=== PATIENT | male | born 1940 | race Caucasian/White ===

== ENCOUNTER 2019-08-22 07:59 | Inpatient (IN) | payer MEDICARE, BC, OTHER ==
[~2019-08-22] VITALS: Ht 152.4 cm; Wt 76.2 kg
[~2019-08-22 07:59] MED LIST: ASPIRIN EC81 M1; OMEPRAZOLE40 MG PO; ZOCOR 20 MG TAB20 M1
[2019-08-22 08:07] VITALS: BP 158/65
[2019-08-22] MEDS ORDERED: NORVASC 2.5 MG2.5 M1 PO (08:19)
[2019-08-22 08:31] LABS: ABSOLUTE BASOPHILS 0.1 thou/uL (0.0-0.2); ABSOLUTE EOSINOPHILS 0.3 thou/uL (0.0-0.7); ABSOLUTE LYMPHOCYTES 2.2 thou/uL (0.8-5.3); ABSOLUTE MONOCYTES 0.4 thou/uL (0.0-1.2); ABSOLUTE NEUTROPHILS 2.8 thou/uL (1.6-8.1); EOSINOPHILS 4.6 %; HEMATOCRIT 43.6 % (42.0-52.0); HEMOGLOBIN 15.5 gm/dL (14.0-18.0); LYMPHOCYTES 38.4 %; MCH 33.6 pg (26.0-34.0); MCHC 35.5 g/dL (28.0-37.0); MCV 94.8 fL (80.0-100.0); MONOCYTES 6.5 %; MPV 7.1 fl. (7.2-11.1); NUCLEATED RBCS 0 /100WBC; PLATELET COUNT* 230 thou/uL (150-400); POLYS 49.5 %; RDW-CV 13.6 % (10.5-14.5); WBC 5.7 thou/uL (4.0-11.0)
[2019-08-22 08:42] LABS: CALCIUM 9.6 mg/dL (8.5-10.1); CREATININE 1.6 mg/dL (0.6-1.3); POTASSIUM 3.9 mmol/L (3.5-5.1)
[2019-08-22 08:56] LABS: ALBUMIN 3.7 g/dL (3.4-5.0); CK-MB MASS 1.7 ng/mL (<0.5-3.6); MAGNESIUM 1.9 mg/dL (1.8-2.4); TOTAL BILIRUBIN 0.4 mg/dL (<0.1-1.0); TOTAL PROTEIN 7.6 g/dL (6.4-8.2)
[2019-08-22 08:59] LABS: APTT 26.3 Seconds (25.0-31.3); INR 1.1
[2019-08-22 10:36] VITALS: BP 121/67
[2019-08-22 14:41] VITALS: BP 121/67
--- NOTE | 2019-08-22 15:01 | NUR ---
PT DISCHARGED TO HOME WITH SONS AND NURSING STAFF AT 1502. IV OUT. NO PAPER SCRIPTS. DISCHARGE PAPERWORK GIVEN. OP STRESS TEST SENT TO BE SCHEDULED. PT STABLE UPON DISCHARGE. ECHO COMPLETE. DC BY CARDIO. PT STABLE UPON DISCHARGE
--- NOTE | 2019-08-22 17:15 | 2DMMODE ---
[place] [address] 2 D/M-MODE ECHOCARDIOGRAM Name: IGOR CADET Room: [address] IN .[place].#: [id number] Admission: 08/22/19 Attend Phys: Anna Cameron, Discharge: 08/22/19 Date of : 42 Date of Service: 08/22/19 1715 Report #: [id number] THIS REPORT FOR: //name// APPROVED REPORT Study performed: 08/22/2019 13:42:32 EXAM: Comprehensive 2D, Doppler, and color-flow Echocardiogram Patient Location: Bedside BSA: 0.74 HR: 50 bpm BP: 121/67 mmHg Other Information Study Quality: Fair Indications Chest Pain 2D Dimensions IVSd: 10.47 (7-11mm) LVOT Diam: 20.75 (18-24mm) LVDd: 43.34 mm PWd: 9.57 (7-11mm) Ascending Ao: 29.29 (22-36mm) LVDs: 30.21 (25-40mm) Aortic Root: 30.76 mm Volumes Left Atrial Volume (Systole) LA ESV Index: 54.60 mL/m2 Aortic Valve AoV Peak Clark.: 1.40 m/s AO Peak Gr.: 7.86 mmHg LVOT Max P.97 mmHg AO Mean Gr.: 4.51 mmHg LVOT Mean P.60 mmHg LVOT Max V: 1.11 m/s AO V2 VTI: 33.61 cm LVOT Mean V: 0.75 m/s JENIFFER (VTI): 2.58 cm2 LVOT V1 VTI: 25.62 cm Mitral Valve E/A Ratio: 0.74 MV Decel. Time: 256.92 ms MV E Max Clark.: 0.67 m/s MV PHT: 74.51 ms MVA (PHT): 2.95 [place]2 [place] [address] 2 D/M-MODE ECHOCARDIOGRAM Name: IGOR CADET Room: [address] IN .[place].#: [id number] Admission: 08/22/19 Attend Phys: Anna Cameron, Discharge: 08/22/19 Date of : 42 Date of Service: 08/22/19 1715 Report #: [id number] TDI E/Lateral E': 7.44 E/Medial E': 7.44 Medial E' Clark.: 0.09 m/s Lateral E' Clark.: 0.09 m/s Pulmonary Valve PV Peak Clark.: 0.89 m/s PV Peak Gr.: 3.17 mmHg Tricuspid Valve RAP Estimate: 5.00 mmHg TR Peak Gr.: 22.03 mmHg RVSP: 27.03 mmHg PA Pressure: 27.03 mmHg Left Ventricle The left ventricle is normal size. There is normal LV segmental wall motion. There is normal left ventricular wall thickness. Left ventricular systolic function is normal. LVEF is 55-60%. Grade I - abnormal relaxation pattern. Right Ventricle Right ventricle is borderline dilated. The right ventricular systolic function is normal. Atria Left atrium is mildly dilated. The right atrium size is normal. Aortic Valve The Aortic valve is mildly sclerotic. Trace aortic regurgitation. There is no aortic valvular stenosis. Mitral Valve The mitral valve is normal in structure. Trace mitral regurgitation. No evidence of mitral valve stenosis. Tricuspid Valve The tricuspid valve is normal in structure. Trace tricuspid regurgitation. Pulmonic Valve The pulmonary valve is normal in structure. There is no pulmonic valvular regurgitation. Great Vessels The aortic root is normal in size. IVC [place] [address] 2 D/M-MODE ECHOCARDIOGRAM Name: PATTIEIGOR CAGLE Mark Room: [address]#: [id number] Admission: 08/22/19 Attend Phys: Anna Cameron, Discharge: 08/22/19 Date of : 42 Date of Service: 08/22/19 1715 Report #: [id number] collapses >50% with inspiration. Pericardium There is no pericardial effusion. <Conclusion> The left ventricle is normal size. There is normal left ventricular wall thickness. Left ventricular systolic function is normal. LVEF is 55-60%. Grade I - abnormal relaxation pattern. Left atrium is mildly dilated. Trace aortic regurgitation. Trace mitral regurgitation. Trace tricuspid regurgitation. <ELECTRONICALLY SIGNED> By: Greyson Bunn MD, FACC 08/22/191714 14 14 Greyson Bunn MD, FACC /INF
--- NOTE | 2019-08-23 08:42 | EKG ---
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1940 Requested By: Darron aCstillo Order Number: [id number] MD: Greyson Bunn Measurements Intervals [place] Rate: 70 P: 68 ID: [id number] QRS: -55 QRSD: 95 T: 73 QT: 409 QTc: 442 Interpretive Statements Sinus rhythm Left anterior fascicular block Abnormal R-wave progression, late transition Compared to ECG 09/21/2013 05:35:30 Left anterior fascicular block now present Electronically Signed On 08-23-2019 8:41:57 CDT by Greyson Bunn [email or web address] <ELECTRONICALLY SIGNED> By: Greyson Bunn MD, FACC 1940 0 0 Greyson Bunn MD, FACC /EPI
== END 2019-08-22 15:02 | disposition home or self-care (01) | DRG 313 ==
LOC: M.ERS 07:59 → M.TBA-ER 09:29 → M.2W 10:48
PROVIDERS: Family Medicine; ADMIT Internal Medicine
DX: R07.89 Other chest pain (principal); E78.5 Hyperlipidemia, unspecified; K21.9 Gastro-esophageal reflux disease without esophagitis; I12.9 Hypertensive chronic kidney disease with stage 1 through stage 4 chronic kidney disease, or unspecified chronic kidney disease; N18.9 Chronic kidney disease, unspecified; Z79.899 Other long term (current) drug therapy; Z82.49 Family history of ischemic heart disease and other diseases of the circulatory system; Z79.82 Long term (current) use of aspirin

== ENCOUNTER → 2019-09-23 | Outpatient (CLI) | payer MEDICARE, BC, OTHER ==
[~2019-09-23] MED LIST changes: +NORVASC 2.5 MG2.5 M1 PO
--- NOTE | 2019-09-23 16:40 | CARDNUC ---
[place] [address] CARDIAC NUCLEAR IMAGING REPORT Name: IGOR CADET Room: [facility]#: [id number] Admission: 09/23/19 Attend Phys: Elaine Garrison Discharge: Date of : 42 Date of Service: 09/23/19 1639 Report #: [id number] THIS REPORT FOR: //name// APPROVED REPORT Study performed: 09/23/2019 15:18:20 Exam: Nuclear Stress Test Indication: Chest pain Patient Location: Out-Patient Stress Tech: Annabelle Her Stress Nurse: Soumya Flores RN Ht: 5 ft 9 in Wt: 168 lbs BSA: 1.92 m2 BMI: 24.80 Medical History Medical History: HTN, Hyperlipidemia Medications: amlosipine, asa, simvastatin Allergies: No known drug allergies Cardiac Risk Factors: Age, HTN, Hyperlipidemia, Past Smoker Exercise History: Physically active Stress Test Details Stress Test: Pharmacologic stress testing performed using 0.4 mg of regadenoson per 5 mL given IV over 10 seconds. Reason for pharmacologic stress test: physical limitation. HR Resting HR: 64 bpm Max Heart Rate (APMHR): 142 bpm Max HR Achieved: 81 bpm Target HR (85% APMHR): 120 bpm % of APMHR: 57 Recovery HR: 72 bpm BP Resting BP: 151/76 mmHg Max BP: 166/81 mmHg ECG Resting ECG: Sinus Rhythm Stress ECG: Sinus Rhythm ST Change: None Arrhythmia: None Recovery ECG: Sinus Rhythm Recovery ST Change: [place] [address] CARDIAC NUCLEAR IMAGING REPORT Name: IGOR CADET Room: [facility]#: [id number] Admission: 09/23/19 Attend Phys: Elaine Garrison Discharge: Date of : 42 Date of Service: 09/23/19 1639 Report #: [id number] Recovery Arrhythmia: None Clinical Reason for Termination: Completed protocol Exercise duration: 0 min sec Exercise capacity: 1 METs The patient tolerated Lexiscan infusion without cardiac symptoms. Nurse Comments pt attempted to walk on treadmill and was unable to do so safely Stress ECG Conclusion The baseline 12-lead EKG showed sinus rhythm without ST or T-wave abnormality. EKGs obtained during and post Lexiscan infusion showed sinus rhythm with ST or T wave changes when compared to baseline. There were no scars used arrhythmias. NM EXAM: Myocardial Perfusion REST/STRESS Resting Data Rest SPECT myocardial perfusion imaging was performed in supine position 30 minutes following the intravenous injection of 10.5 mCi of Tc-99m Sestamibi. Time of rest injection: 13:30 The images were gated to evaluate regional wall motion and calculate left ventricular ejection fraction. Administration Route: IV Administration Site: Left AC Pharmacologic Stress Pharmacologic stress test was performed by injecting Regadenoson 0.4 mg IV push followed by the intravenous injection of 32.3 mCi of Tc-99m Sestamibi. Time of stress injection: 15:05 Administration Route: IV Administration Site: Left AC Heart Rate at time of stress injection: 77 bpm. Gated Stress SPECT was performed 45 minutes after stress injection. The images were gated to evaluate regional wall motion and calculate left ventricular ejection fraction. Study Quality Study: [place] [address] CARDIAC NUCLEAR IMAGING REPORT Name: IGOR CADET Room: [facility]#: [id number] Admission: 09/23/19 Attend Phys: Elaine Garrison Discharge: Date of : 42 Date of Service: 09/23/19 1639 Report #: [id number] Artifact: No artifact Study Data At rest, the left ventricular ejection fraction was 68%.. Post stress, the left ventricular ejection was 74%.. TID = 1.11. Perfusion Perfusion images obtained at rest and post Lexiscan stress showed uniform uptake of the radioisotope throughout the myocardium without defect. Wall Motion Normal left ventricular wall motion. Nuclear Conclusion ECG Findings: negative for ischemia Clinical Findings: negative for ischemia Nuclear Findings: negative for ischemia Exercise Capacity: not assessed Left Ventricular Function: normal Risk Study: low Myocardial perfusion images showed no defect to suggest infarct or ischemia. Left ventricular systolic function appears normal on gated study. This is a low risk study. <Conclusion> The baseline 12-lead EKG showed sinus rhythm without ST or T-wave abnormality. EKGs obtained during and post Lexiscan infusion showed sinus rhythm with ST or T wave changes when compared to baseline. There were no scars used arrhythmias. <ELECTRONICALLY SIGNED> By: Greyson Bunn MD, FACC 09/23/19 1639 1639 1639 Greyson Bunn MD, FACC /INF
== END ==
LOC: M.NUC 08-24 05:45
DX: R07.9 Chest pain, unspecified (principal); I10 Essential (primary) hypertension; E78.5 Hyperlipidemia, unspecified; Z79.899 Other long term (current) drug therapy